=== PATIENT | male | born 1945 | race Caucasian/White ===

== ENCOUNTER → 2019-06-30 11:05 | Outpatient (CLI) | payer MEDICARE, SELFPAY ==
--- NOTE | 2019-06-30 | DI.MRI.S_ITS ---
PROCEDURE: MR WRIST RT W CON INDICATIONS: RIGHT WRIST PAIN TECHNIQUE: After the administration of 3-4 mL of dilute intra-articular Gadolinium contrast into the radiocarpal compartment, coronal T1 spin echo with fat saturation and T2 fast spin echo with fat saturation, axial T1 spin echo and T2 fast spin echo with fat saturation, sagittal T1 spin echo with and without fat saturation through the wrist. COMPARISON: None. FINDINGS: Image quality: Excellent. Bones and cartilage: The carpal bones are normally aligned. No bone marrow contusions or fractures. No evidence for avascular necrosis. Degenerative spurring at the radial styloid, and possible adjacent capsular thickening Carpal ligaments: The scapholunate and lunotriquetral ligaments appear intact, without gadolinium extravasation into the mid-carpal compartment. The radioscaphocapitate and radiolunotriquetral ligaments appear intact. The arcuate ligament and short radiolunate ligament also appear normal. The dorsal intercarpal and radiotriquetral ligaments appear intact. On sagittal images, the pisohamate ligament appears intact. Triangular fibrocartilage complex: Pinpoint full-thickness perforation of the TFCC at the junction of the radial attachment and central disc is seen image 11/4, there is associated leakage of injected contrast material into the distal radioulnar joint. There is adjacent mild partial thickness loss of the lunate and distal radial articular cartilage, in addition to mild subchondral cystic changes in the lunate. Possible small 2 mm osteochondral defect at the proximal surface of the lunate image 16/9. The adjacent meniscal homolog appears normal. The ulnar collateral ligament appears intact. The extensor carpi ulnaris tendon is normal in location and morphology. Tendons and soft tissues: The carpal tunnel structures appear normal, including the median nerve. The ulnar nerve appears normal within Guyon's canal. All six extensor tendon compartments demonstrate normal morphology, without pathologic tendon sheath fluid. No soft tissue ganglion cysts. IMPRESSION: Scapholunate ligament appears intact. No evidence of contrast material leakage into the midcarpal compartment. 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 Mild partial thickness proximal lunate and distal radial articular cartilage loss, and early cystic change/edema within the lunate. Dictated by: Sonu Ariza M.D. on 06/30/2019 at 13:35 Approved by: Sonu Ariza M.D. on 06/30/2019 at 14:39
--- NOTE | 2019-06-30 | DI.RAD.S_ITS ---
PROCEDURE: FL WRIST INJECTION MR/CT RT INDICATIONS: RIGHT WRIST PAIN TECHNIQUE: After informed consent had been obtained, the wrist was examined fluoroscopically, and a site chosen for injection of the radiocarpal compartment from a dorsal approach. Skin was prepped and draped in a sterile fashion and 1% lidocaine infiltrated from the skin down to the articular surface. A hypodermic needle was then introduced into the articular space and a modest amount of contrast medium was instilled confirming intra-articular needle tip placement. This was followed by approximately 4 mL of a dilute gadolinium solution. Needle was removed and dressing was applied. The patient experienced no complications throughout the procedure and left the fluoroscopic suite in no apparent distress. FINDINGS: A single fluoroscopic spot image demonstrates intra-articular location to injected iodinated contrast. IMPRESSION: Successful fluoroscopic-guided administration of dilute Gadolinium solution for wrist MR arthrogram. Dictated by: Sonu Ariza M.D. on 06/30/2019 at 17:28 Approved by: Sonu Ariza M.D. on 06/30/2019 at 17:28
== END ==
PROVIDERS: Referring Provider Orthopaedic Surgery; Visit Provider Orthopaedic Surgery
DX: M25.531 Pain in right wrist (principal); S63.591A Other specified sprain of right wrist, initial encounter
CPT/HCPCS: 20605; 73222; 77002